=== PATIENT | male | born 1960 | race Caucasian/White ===

== ENCOUNTER 2017-08-02 20:15 | Emergency (ER) | payer OTHER, MEDICAID, SELFPAY ==
[2017-08-02 20:19] VITALS: BP 161/94; PULSE 130; RESP 18; TEMP 36.9; O2SAT 95; BMI 27.3
--- NOTE | 2017-08-03 00:52 | DI.RAD.S_ITS ---
PROCEDURE: XR CHEST 2V INDICATIONS: cough TECHNIQUE: 2 views of the chest were acquired. COMPARISON: [facility], , CHEST 1 VIEW, 07/26/2016, 17:11. FINDINGS: Surgical changes and devices: None. Lungs and pleura: No pleural effusions or pneumothorax. Lungs are clear. Mediastinum: Mediastinal contours are normal. Heart size is normal. Bones and chest wall: No suspicious bony abnormalities. Soft tissues appear unremarkable. IMPRESSION: No acute cardiopulmonary abnormality. Source of cough not seen. Dictated by: Raghavendra Garcia M.D. on 08/03/2017 at 7:58 Approved by: Raghavendra Garcia M.D. on 08/03/2017 at 7:59
[2017-08-03 01:09] VITALS: BP 157/92; PULSE 118; RESP 16; O2SAT 94
[2017-08-03] MEDS: GABAPENTIN 100 MG CAPSULE 400 MG PO (01:28)
--- NOTE | 2017-08-03 01:28 | ED.ALCOHOL ---
HPI - Alcohol General Chief Complaint: Toxicology Problem Stated Complaint: ALCSHEA WITHDRAWLS Time Seen by Provider: 08/03/17 00:49 History of Present Illness HPI narrative: HPI 57-year-old male with a history of intermittent recurrent EtOH abuse presents requesting assistance with sobriety after drinking heavily over the last 3 weeks. Patient reports that he was sober from one year prior to his last relapse. Patient reported drinking again after a trip to [place] and returning and finding himself bored. Patient drink 1/5 of hard alcohol day. Patient reports he is had multiple prior episodes of withdrawal that he is tolerated acceptably, however one was marked by seizures. Patient last drink one hour prior to arrival and approximate 6 hours prior to assessment. Patient denies chest pain, fevers, chills, but notes a cough for the last 3 weeks. ROS with no recent constitutional symptoms. Exam Gen: Pleasant, nontoxic-appearing, resting comfortably. HEENT: NC, AT, PEERL, EOMI. Resp: labor respirations with a normal work of breathing, lungs clear to auscultation bilaterally. Card: Extremities warm and well perfused. GI: Non-distended. : Deferred MSK: No visible deformities, strength and tone without visually appreciable deficit. Neuro: AO x 3, no facial asymmetry, vision and hearing WNL. Extremities without tremor. Heme/Lymph: Deferred Skin: Normal color with no visible lesions (other than noted above). Psych: Mood and affect appropriate. CXR: no acute cardiopulmonary disease process. Radiologist read pending. MDM Previous chart, nursing note, and vitals reviewed. A: 57-year-old male with history of EtOH abuse presents 6 hours after his last drink requesting assistance with alcohol withdraw; ROS notable for cough of 3 weeks duration. DDx & Evaluation: patient well-appearing, mild tachycardia, no chest pain, shortness breath, or further findings on history or exam to warrant investigation with respect to ACS, PE, pericarditis, myocarditis, or anemia. Chest x-ray without evidence of pneumonia. Patient given 400 mg gabapentin emergency department, discharge with RX for gabapentin and resources for assistance with alcohol cessation. Patient to follow up with his [employer] in the morning. Impression: early alcohol withdrawal. (please reference below for remainder of encounter information) Related Data Previous Rx's Medication Instructions Recorded chlordiazepoxide HCl 25 mg PO BIDP PRN #10 cap 08/01/16 gabapentin See Label Instructions .ROUTE 08/03/17 .COMPLEX #20 cap Allergies Allergy/AdvReac Type Severity Reaction Status Date / Time No Known Allergies Allergy Uncoded 06/23/17 11:58 PFSH Social History Smoking Status: Former smoker Exam Initial Vital Signs Initial Vital Signs: Vital Signs Temperature 98.5 F 08/02/17 20:19 Pulse Rate 130 H 08/02/17 20:19 Respiratory Rate 18 08/02/17 20:19 Blood Pressure 161/94 H 08/02/17 20:19 Pulse Oximetry 95 08/02/17 20:19 Course Orders Ordered: ED Orders 08/03/17 00:52 XR chest 2V Stat Gabapentin (Neurontin) 400 mg PO NOW YOLA Vital Signs - 8 hr 08/02/17 20:19 08/03/17 01:09 Temperature 98.5 F Pulse Rate 130 H 118 H Respiratory Rate 18 16 Blood Pressure 161/94 H Blood Pressure [Left Arm] 157/92 H Pulse Oximetry 95 94 Discharge Plan Departure Patient Disposition: Home, Self-Care Clinical Impression: Alcohol withdrawal Activity Restrictions/Additional Instructions: You were in seen in the [facility] Emergency Department for assistance with alcohol withdraw. Please read and follow all of the instructions below. 1. Please fill your gabapentin prescription and take as prescribed. 2. Please follow up with your primary care physician on 08/04/17. 3. If you would like to explore further options for assistance with detox please contact the following: [facility] Address: [place] [address] 4. If you have any new symptoms or if you are at all concerned about your health please return immediately to the emergency department. If you do not have a primary care physician, please contact [facility], [facility] at [phone], [facility] medicine at [phone], or [facility] at [phone] to arrange follow up care. If you have health insurance, please also contact your insurer for a list of accepting providers under your policy, you may contact these providers for further health care. Your care today was limited to identifying and treating emergent medical problems only. Many people have subtle differences in their test results that require follow up with their outpatient physician(s) to correctly determine if this represents a normal variation or concerning abnormality with respect to your specific health. The care given to you today was limited to identifying and treating emergent medical problems - you need to request a copy of all of your medical records from today's visit and follow up with your outpatient physician(s) to review both today's visit and your overall health. Alcohol Withdrawal Alcohol withdrawal is a condition that happens when a person who often drinks large amounts of alcohol suddenly stops drinking alcohol. People with alcohol withdrawal often have a headache, a stomach ache, and trouble sleeping. But sometimes, the symptoms are much more serious and even life threatening. Mild to moderate withdrawal can be treated at home. You are being treated for alcohol withdrawal * Call your primary care physician tomorrow to schedule a follow up appointment in 3-4 days. * Do not drink any further alcohol. * Call [employer] to obtain a sponsor and to start attending meetings. * Take gabapentin as prescribed to help reduce withdrawal symptoms (400 mg three times a day for days 1 through 4, then 400 mg two times a day for days 5-8). * Return immediately to the emergency room if you have hallucinations, fevers, sweating, a racing heart, confusion, increasing tremors, anxiety, chest pain, seizures or are otherwise concerned about your health. * Please read the below information regarding alcohol withdrawal and regarding Gabapentin. Symptoms of Alcohol Withdrawal * Mild symptoms include: trouble sleeping, trembling, feeling anxious, having an upset stomach and not wanting to eat, headache, sweating, feeling like your heart is beating fast, beating hard, or seems to skip a beat (these heartbeat changes are called palpitations). These symptoms often start within 6 hours after a person stops drinking. They might go away within 1 or 2 days. * Some people also get more serious symptoms, including:, Seizures (these can make a person pass out, or move or behave strangely. With alcohol withdrawal, seizures usually happen within 12 to 48 hours after the person stops drinking) and hallucinations. * Delirium tremens or DT, this is the most serious form of alcohol withdrawal. Symptoms include: hallucinations, feeling confused about where you are or who you are, feeling very upset and anxious, uncontrolled shaking, a fast heartbeat, high blood pressure, fever, and sweating. These symptoms start 2 to 4 days after a person stops drinking and can last up to 5 days. Gabapentin - How To Use * Read the Medication Guide provided by your pharmacist before you start taking gabapentin and each time you get a refill. If you have any questions, ask your doctor or pharmacist. * Swallow this medication whole. Do not crush or chew sustained-release tablets. Doing so can release all of the drug at once, increasing the risk of side effects. Also, do not split sustained-release tablets unless they have a score line and your doctor or pharmacist tells you to do so. Swallow the whole or split tablet without crushing or chewing. * Antacids containing aluminum or magnesium may interfere with the absorption of this medication. Therefore, if you are also taking an antacid, it is best to take gabapentin at least 2 hours after taking the antacid. Gabapentin Side Effects * Drowsiness, loss of coordination, and dizziness may occur. If any of these effects persist or worsen, tell your doctor or pharmacist promptly. * Tell your doctor right away if you have any serious side effects, including: swelling of the hands/ankles/feet. * A small number of people who take anticonvulsants for any condition (such as seizures, bipolar disorder, pain) may experience depression, suicidal thoughts/attempts, or other mental/mood problems. Tell your doctor right away if you or your family/caregiver notice any unusual/sudden changes in your mood, thoughts, or behavior including signs of depression, suicidal thoughts/attempts, thoughts about harming yourself. * Get medical help right away if you have any serious side effects, including: unusual fever, swollen glands, yellowing skin/eyes, unusual tiredness, dark urine, change in the amount of urine, chest pain. * A very serious allergic reaction to this drug is rare. However, get medical help right away if you notice any symptoms of a serious allergic reaction, including: rash, itching/swelling (especially of the face/tongue/throat), severe dizziness, trouble breathing. * This is not a complete list of possible side effects. If you notice other effects not listed above, contact your doctor or pharmacist. Gabapentin Precautions * Before taking gabapentin, tell your doctor or pharmacist if you are allergic to it; or to gabapentin enacarbil; or if you have any other allergies. This product may contain inactive ingredients, which can cause allergic reactions or other problems. Talk to your pharmacist for more details. * Before using this medication, tell your doctor or pharmacist your medical history, especially of: kidney disease, mental/mood problems (such as depression, thoughts of suicide), use/abuse of drugs/alcohol. * This drug may make you dizzy or drowsy. Do not drive, use machinery, or do any activity that requires alertness until you are sure you can perform such activities safely. Limit alcoholic beverages. * Before having surgery, tell your doctor or dentist about all the products you use (including prescription drugs, nonprescription drugs, and herbal products). * Older adults may be more sensitive to the side effects of this drug, especially swelling of the hands/ankles/feet, dizziness, or loss of coordination. Dizziness and loss of coordination can increase the risk of falling. Gabapentin Drug Interactions * Tell your doctor or pharmacist if you are taking other products that cause drowsiness including alcohol, antihistamines (such as cetirizine, diphenhydramine), drugs for sleep or anxiety (such as alprazolam, diazepam, zolpidem), muscle relaxants, and narcotic pain relievers (such as codeine, morphine). * Check the labels on all your medicines (such as allergy or [id number] products) because they may contain ingredients that cause drowsiness. Ask your pharmacist about using those products safely. * Do not use this medication with other medications that contain gabapentin (including gabapentin enacarbil). * This medication may interfere with certain laboratory tests for urine protein. Make sure laboratory personnel and all your doctors know you use this drug. Prescriptions: New gabapentin 400 mg capsule See Label Instructions .ROUTE .COMPLEX Qty: 20 RF: 0 No Action chlordiazepoxide HCl 25 MG capsule 25 mg PO BIDP PRNQty: 10 RF: 0
[2017-08-03 02:47] VITALS: BP 152/86; PULSE 106; RESP 20; TEMP 37; O2SAT 94
== END 2017-08-03 02:49 | disposition home or self-care (01) ==
PROVIDERS: Emergency Provider Emergency Medicine; Family Provider Nurse Practitioner Family; PCP Nurse Practitioner Family
DX: F10.239 Alcohol dependence with withdrawal, unspecified (principal)
CPT/HCPCS: 71046; 99282; 99283

== ENCOUNTER → 2017-12-02 08:33 | Outpatient (CLI) | payer OTHER, MEDICAID, SELFPAY | PROVIDERS: PCP Nurse Practitioner Family; Visit Provider Nurse Practitioner Family | DX: Z00.00 Encounter for general adult medical examination without abnormal findings (principal); I10 Essential (primary) hypertension ==

== ENCOUNTER 2019-06-10 16:37 | Emergency (ER) | payer SELFPAY ==
[2019-06-10 16:40] VITALS: BP 156/87; PULSE 82; RESP 20; TEMP 36.9; O2SAT 100; BMI 28.8
[2019-06-10 16:56] LABS: Add Manual Diff / Slide Review NO; Basophils Absolute Auto 0 /uL (0-100); Basophils Percent Auto 0.7 % (0-2); Eosinophils Absolute Auto 0 /uL (0-450); Eosinophils Percent Auto 0.8 % (2-4); Hematocrit 36.4 % (41-53); Hemoglobin 12.5 g/dL (13.5-17.5); Lymphocytes Absolute Auto 900 /uL (1100-4500); Lymphocytes Percent Auto 14.5 % (25-40); Mean Corpuscular HGB Conc 34.4 % (30-36); Mean Corpuscular Hemoglobin 31.2 PG (26-34); Mean Corpuscular Volume 90.8 fL (80-100); Monocytes Absolute Auto 700 /uL (0-900); Neutrophils Absolute Auto 4500 /uL (1500-7000); Red Blood Cell Count 4.01 X10^6/uL (4.5-5.9); Red Cell Distribution Width 13.9 % (11.6-14.8); White Blood Cell Count 6.1 X10^3/uL (4.5-11.0)
[2019-06-10] MEDS: SODIUM CHLORIDE 0.9% 1,000 ML 1000 ML IV (17:05)
[2019-06-10 17:09] LABS: Platelet Count 53 X10^3/uL (150-400)
[2019-06-10 17:16] LABS: Alanine Aminotransferase 78 IU/L (<50); Albumin 4.5 g/dL (3.5-5.0); Albumin Globulin Ratio 1.3 (1.0-2.8); Alkaline Phosphatase 56 U/L (38-126); Aspartate Aminotransferase 130 IU/L (17-59); BUN Creatinine Ratio 15.6 (6-22); Bilirubin Total 1.6 mg/dL (0.2-1.3); Bilirubin Unconjugated 1.3 mg/dL (0.0-1.1); Blood Urea Nitrogen 12 mg/dL (9-20); Calcium 9.4 mg/dL (8.4-10.2); Carbon Dioxide 29 mmol/L (22-32); Chloride 97 mmol/L (98-107); Estimated Glomerular Filt Rate > 60.0 mL/min (>60); Ethanol (ETOH) < 10 mg/dL; Globulin 3.4 g/dL (1.7-4.1); Glucose 105 mg/dL (70-100); Lipase 219 U/L (23-300); Magnesium 1.8 mg/dL (1.6-2.3); Sodium 136 mmol/L (137-145); Total Protein 7.9 g/dL (6.3-8.2)
[2019-06-10 17:17] LABS: HEMOLYSIS 73 (0-50)
[2019-06-10 17:18] LABS: Potassium 3.9 mmol/L (3.4-5.1)
--- NOTE | 2019-06-10 17:35 | ED.ALCOHOL ---
HPI - Alcohol <Rahul HajiMO Lea - Last Filed: 06/10/19 22:27> General Chief Complaint: Toxicology Problem Stated Complaint: ETOH withdrawls Time Seen by Provider: 06/10/19 16:50 Source: patient Mode of arrival: Ambulatory Limitations: no limitations History of Present Illness HPI narrative: This is a 59 year male, former smoker, who presents to ED with chief complain of alcohol withdrawal symptoms with incredibly feeling anxious and he is concerned and afraid that he may go through seizure. Patient reports last drink was 4 days ago and he was sober up until 2 weeks ago and went back to heavy drinking. Patient wants to quit drinking once again for his health and states it's going to kill me. Patient's choice of occult drinks are beer and ROM. Patient probably had half of 1/5 bottle for prior to 4 days ago. Patient was at large gathering with his friends and thought he will be able to handle on alcoholic drink and started with 1 drink which became more in amount and was unable to stop drinking. Patient reports yesterday he felt worst of his life. He was feeling anxious with the tremble was, feeling scared and paranoid. Patient was brought in by his friend and he is considering inpatient treatment at this time which he found to be helpful in the past. Patient denies headache, nausea, hallucinations at this time. Patient denies fever, recent illness, or coughing or chest pain. Related Data Previous Rx's Medication Instructions Recorded chlordiazepoxide HCl 25 mg PO BIDP PRN #10 cap 08/01/16 gabapentin See Rx Instructions .ROUTE 08/03/17 .COMPLEX #20 cap Allergies Allergy/AdvReac Type Severity Reaction Status Date / Time No Known Allergies Allergy Verified 06/11/19 15:05 Review of Systems <Rahul Benitez APPLICATIONS SUPPORT ENGINEER - Last Filed: 06/10/19 22:27> Review of Systems Narrative: General: Denies fever, chills, fatigue, malaise, sweats. HEENT: Denies sinus pain, ear pain, sore throat, difficulty swallowing, dizziness. Respiratory: Denies dyspnea, cough, wheezing, hemoptysis, sputum. Cardiovascular: Denies chest pain, palpitations, orthopnea, edema. Gastrointestinal: Denied (+) resolved nausea, vomiting, abdominal pain, diarrhea, constipation, melena. : Denies dysuria, frequency, incontinence, hematuria, urinary retention. Musculoskeletal: Denies weakness, joint pain or bony pain. Skin: Denies rash, skin lesions, or other. Neurologic: Denies weakness, headache, numbness, change in speech, confusion, seizures, incoordination. Psychiatric: See HPI 12-point review of systems is negative except for those stated above. Patient History <Rahul ISIAH BenitezP - Last Filed: 06/10/19 22:27> Social History Smoking Status: Former smoker Smoking Status: Former smoker alcohol intake frequency: 3 or more drinks per day Substance Use Type: marijuana Exam <[facility] ISIAH BenitezP - Last Filed: 06/10/19 22:27> Narrative Exam Narrative: General appearance: well developed, well nourished, mildly restless and appears to be mildly anxious. Head: normocephalic, atraumatic, no scalp lesions, non-tender. ENT: Hearing grossly intact. Nose without bleeding, purulent discharge, septal hematoma or deviation. Turbinate without erythema or swelling. Mucous membrane moist, no mucosal lesion. Throat without erythema, tonsillar hypertrophy or exudate. Uvula in midline, airway patent. Neck/Thyroid: neck supple, full range of motion, no visible masses or meningeal signs. No JVD, non-tender without lymphadenopathy. Skin: no suspicious rashes, lesions over visible areas. Warm and dry and appropriate color for ethnicity. Heart: no clubbing, no cyanosis, no edema. S1 and S2 normal. RRR w/o murmurs, clicks, or bruits. Lungs: Breathing even and unlabored. No stridor. No accessory muscles used. Able to speak in full sentences. Chest: normal shape and expansion. Abdomen: non-obese, non-distended. Neurologic: alert and oriented. Cognitive exam, WOOD FILLER and PNS grossly intact on informal exam. Psych: good eye contact, mildly anxious and restless. Cooperative during exam. Initial Vital Signs Initial Vital Signs: Vital Signs Temperature 98.4 F 06/10/19 16:40 Pulse Rate 82 06/10/19 16:40 Respiratory Rate 20 06/10/19 16:40 Blood Pressure 156/87 H 06/10/19 16:40 Pulse Oximetry 100 06/10/19 16:40 <Willie Gonzalez MD - Last Filed: 06/11/19 19:21> Initial Vital Signs Initial Vital Signs: Vital Signs Temperature 98.4 F 06/10/19 16:40 Pulse Rate 82 06/10/19 16:40 Respiratory Rate 20 06/10/19 16:40 Blood Pressure 156/87 H 06/10/19 16:40 Pulse Oximetry 100 06/10/19 16:40 Scores [facility] - Last Filed: 06/10/19 22:27> GCS [place] coma scale eye opening: Spontaneous Natasha coma scale verbal response: Orientated Natasha coma scale motor response: Obey commands Natasha coma scale total score: 15 Citation: CIWA 9 at 1730 (mild nausea 1, tremor 2, modrately anxious 4, agitation 2). CIWA 1 at 2020. Course <Rahul MO Benitez - Last Filed: 06/10/19 22:27> Orders Ordered: Discontinued Medications Sodium Chloride (Normal Saline 0.9%) 1,000 mls @ 1,000 mls/hr IV BOLUS ONE Stop: 06/10/19 17:49 Last Infusion: 06/10/19 18:20 Dose: 0 mls/hr Documented by: Admin: 06/10/19 17:05 Dose: 1,000 mls/hr Documented by: MAULIK Lorazepam (Ativan) 1 mg IV NOW ONE Stop: 06/10/19 17:37 Last Admin: 06/10/19 17:41 Dose: 1 mg Documented by: ROSALINE Ondansetron HCl (Zofran Odt Prepack) 1 bottle MISC SEEINSTR ONE Stop: 06/10/19 20:39 Last Admin: 06/10/19 20:51 Dose: 1 bottle Documented by: MITCH Phenobarbital (Phenobarbital) 260 mg IV NOW ONE Stop: 06/10/19 17:37 Last Admin: 06/10/19 17:50 Dose: 260 mg Documented by: ROSALINE Vital Signs Vital signs: Vital Signs - 8 hr 06/10/19 16:40 06/10/19 19:03 06/10/19 19:04 Temperature 98.4 F Pulse Rate 82 70 75 Respiratory Rate 20 16 Blood Pressure 156/87 H Blood Pressure [Left Arm] 137/83 137/83 Pulse Oximetry 100 91 06/10/19 20:00 06/10/19 21:04 Temperature Pulse Rate 78 81 Respiratory Rate 16 Blood Pressure 167/89 H Blood Pressure [Left Arm] 147/83 H Pulse Oximetry 98 98 <Willie Gonzalez MD - Last Filed: 06/11/19 19:21> Orders Ordered: Discontinued Medications Sodium Chloride (Normal Saline 0.9%) 1,000 mls @ 1,000 mls/hr IV BOLUS ONE Stop: 06/10/19 17:49 Last Infusion: 06/10/19 18:20 Dose: 0 mls/hr Documented by: Admin: 06/10/19 17:05 Dose: 1,000 mls/hr Documented by: MAULIK Lorazepam (Ativan) 1 mg IV NOW ONE Stop: 06/10/19 17:37 Last Admin: 06/10/19 17:41 Dose: 1 mg Documented by: ROSALINE Ondansetron HCl (Zofran Odt Prepack) 1 bottle MISC SEEINSTR ONE Stop: 06/10/19 20:39 Last Admin: 06/10/19 20:51 Dose: 1 bottle Documented by: MITCH Phenobarbital (Phenobarbital) 260 mg IV NOW ONE Stop: 06/10/19 17:37 Last Admin: 06/10/19 17:50 Dose: 260 mg Documented by: ROSALINE Vital Signs Vital signs: Vital Signs - 8 hr 06/10/19 16:40 06/10/19 19:03 06/10/19 19:04 Temperature 98.4 F Pulse Rate 82 70 75 Respiratory Rate 20 16 Blood Pressure 156/87 H Blood Pressure [Left Arm] 137/83 137/83 Pulse Oximetry 100 91 06/10/19 20:00 06/10/19 21:04 Temperature Pulse Rate 78 81 Respiratory Rate 16 Blood Pressure 167/89 H Blood Pressure [Left Arm] 147/83 H Pulse Oximetry 98 98 MDM - Alcohol <MO Almaguer - Last Filed: 06/10/19 22:27> Lab Data Result diagrams: 06/10/19 16:45 06/10/19 16:45 Labs: Lab Results 06/10/19 06/10/19 06/10/19 Range/Units 16:45 16:45 17:58 WBC 6.1 (4.5-11.0) X10^3/uL RBC 4.01 L (4.5-5.9) X10^6/uL Hgb 12.5 L (13.5-17.5) g/dL Hct 36.4 L (41-53) % MCV 90.8 (80-100) fL MCH 31.2 (26-34) PG MCHC 34.4 (30-36) % RDW 13.9 (11.6-14.8) % Plt Count 53 L (150-400) X10^3/uL Neut % (Auto) 73.0 (50-75) % Lymph % (Auto) 14.5 L (25-40) % [place] % (Auto) 11.0 (3-14) % Eos % (Auto) 0.8 L (2-4) % Baso % (Auto) 0.7 (0-2) % Neut # (Auto) 4500 (9217-6934) /uL Lymph # (Auto) 900 L (6441-7241) /uL [place] # (Auto) 700 (0-900) /uL Eos # (Auto) 0 (0-450) /uL Baso # (Auto) 0 (0-100) /uL Sodium 136 L (137-145) mmol/L Potassium 3.9 (3.4-5.1) mmol/L Chloride 97 L (98-107) mmol/L Carbon Dioxide 29 (22-32) mmol/L BUN 12 (9-20) mg/dL Creatinine 0.77 (0.66-1.25) mg/dL Estimated GFR > 60.0 (>60) mL/min BUN/Creatinine Ratio 15.6 (6-22) Glucose 105 H (70-100) mg/dL Calcium 9.4 (8.4-10.2) mg/dL Magnesium 1.8 (1.6-2.3) mg/dL Total Bilirubin 1.6 H (0.2-1.3) mg/dL Conjugated Bilirubin 0.0 (0.0-0.3) md/dL Unconjugated Bilirubin 1.3 H (0.0-1.1) mg/dL AST 130 H (17-59) IU/L ALT 78 H (<50) IU/L Alkaline Phosphatase 56 (38-126) U/L Total Protein 7.9 (6.3-8.2) g/dL Albumin 4.5 (3.5-5.0) g/dL Globulin 3.4 (1.7-4.1) g/dL Albumin/Globulin Ratio 1.3 (1.0-2.8) Lipase 219 (23-300) U/L U Opiates 300ng/mL cut Negative (Negative) Ur Oxycodone Screen Negative (Negative) Urine Methadone Screen Negative (Negative) Ur Barbiturates Screen Negative (Negative) U Tricyclic Antidepress Negative (Negative) Ur Phencyclidine Scrn Negative (Negative) Ur Amphetamines Screen Negative (Negative) U Methamphetamines Scrn Negative (Negative) Ur MDMA Scrn (Ecstasy) Negative (Negative) U Benzodiazepines Scrn Negative (Negative) Urine Cocaine Screen Negative (Negative) U Marijuana (THC) Screen Negative (Negative) Ethyl Alcohol < 10 ( - 10) mg/dL Urine Dip Bedside Urine Glucose Negative Bedside Urine Bilirubin - Negative Bedside Urine Ketone - Negative Urine Specific [place] 1.010 Bedside Urine Occult Blood - Negative Bedside Urine pH 8.0 Bedside Urine Protein - Negative Bedside Urine Urobilinogen - Negative Bedside Urine Nitrite - Negative Bedside Urine Leukocytes - Negative Esterase MDM Narrative Medical decision making narrative: This is a 59-year-old male who presents to ED with alcohol matson or symptoms. Patient recently started drinking again 2 weeks ago after he was sober for 2 years. Patient reports last drink was 4 days ago. Patient states yesterday he had worst symptoms and he had taken his own Valium at home to cope with his symptoms. Patient's initial CIWA score was 9 with some anxiety, tremors, and nausea. Patient was provided with IV fluid, IV Phenobarbital 260 mg and Ativan 1 mg IV for the symptoms. Patient states he had questionable mild seizure symptoms from alcohol withdrawal in the past and his concerned. Patient has mildly decreased H&H of 12.5 and 36.4 and platelets of 53 and his baseline platelet counts are from 41-96. Patient had mildly decreased sodium and chloride level of 136 and 97. Patient has history of pancreatitis and today's AST was 130, ALT of 78, with total bilirubin of 1.6. Lipase were normal. Patient denies any abdominal discomfort at this time. Patient informed phenobarbital is likely prevent seizure activities for next a few days. Patient's last drink was 4 days and it is unlikely patient will have DT at this time. Additional prophylactic medication for alcohol withdrawal symptoms were not provided since patient already has a few tabs of Valium at home. Patient discharged to home with [place] and advised to hydrate well and avoid alcohol drinks. Return precautions were discussed with the patient and patient verbalized the understanding and in agreement with the treatment plan. <Willie Gonzalez MD - Last Filed: 06/11/19 19:21> Lab Data Labs: Lab Results 06/10/19 06/10/19 06/10/19 Range/Units 16:45 16:45 17:58 WBC 6.1 (4.5-11.0) X10^3/uL RBC 4.01 L (4.5-5.9) X10^6/uL Hgb 12.5 L (13.5-17.5) g/dL Hct 36.4 L (41-53) % MCV 90.8 (80-100) fL MCH 31.2 (26-34) PG MCHC 34.4 (30-36) % RDW 13.9 (11.6-14.8) % Plt Count 53 L (150-400) X10^3/uL Neut % (Auto) 73.0 (50-75) % Lymph % (Auto) 14.5 L (25-40) % [place] % (Auto) 11.0 (3-14) % Eos % (Auto) 0.8 L (2-4) % Baso % (Auto) 0.7 (0-2) % Neut # (Auto) 4500 (8126-5367) /uL Lymph # (Auto) 900 L (6775-1468) /uL [place] # (Auto) 700 (0-900) /uL Eos # (Auto) 0 (0-450) /uL Baso # (Auto) 0 (0-100) /uL Sodium 136 L (137-145) mmol/L Potassium 3.9 (3.4-5.1) mmol/L Chloride 97 L (98-107) mmol/L Carbon Dioxide 29 (22-32) mmol/L BUN 12 (9-20) mg/dL Creatinine 0.77 (0.66-1.25) mg/dL Estimated GFR > 60.0 (>60) mL/min BUN/Creatinine Ratio 15.6 (6-22) Glucose 105 H (70-100) mg/dL Calcium 9.4 (8.4-10.2) mg/dL Magnesium 1.8 (1.6-2.3) mg/dL Total Bilirubin 1.6 H (0.2-1.3) mg/dL Conjugated Bilirubin 0.0 (0.0-0.3) md/dL Unconjugated Bilirubin 1.3 H (0.0-1.1) mg/dL AST 130 H (17-59) IU/L ALT 78 H (<50) IU/L Alkaline Phosphatase 56 (38-126) U/L Total Protein 7.9 (6.3-8.2) g/dL Albumin 4.5 (3.5-5.0) g/dL Globulin 3.4 (1.7-4.1) g/dL Albumin/Globulin Ratio 1.3 (1.0-2.8) Lipase 219 (23-300) U/L U Opiates 300ng/mL cut Negative (Negative) Ur Oxycodone Screen Negative (Negative) Urine Methadone Screen Negative (Negative) Ur Barbiturates Screen Negative (Negative) U Tricyclic Antidepress Negative (Negative) Ur Phencyclidine Scrn Negative (Negative) Ur Amphetamines Screen Negative (Negative) U Methamphetamines Scrn Negative (Negative) Ur MDMA Scrn (Ecstasy) Negative (Negative) U Benzodiazepines Scrn Negative (Negative) Urine Cocaine Screen Negative (Negative) U Marijuana (THC) Screen Negative (Negative) Ethyl Alcohol < 10 ( - 10) mg/dL Urine Dip Bedside Urine Glucose Negative Bedside Urine Bilirubin - Negative Bedside Urine Ketone - Negative Urine Specific [place] 1.010 Bedside Urine Occult Blood - Negative Bedside Urine pH 8.0 Bedside Urine Protein - Negative Bedside Urine Urobilinogen - Negative Bedside Urine Nitrite - Negative Bedside Urine Leukocytes - Negative Esterase Discharge Plan Departure Patient Disposition: Home Clinical Impression: Alcohol withdrawal Qualifiers: Complication of substance-induced condition: with unspecified complication Qualified Code(s): F10.239 - Alcohol dependence with withdrawal, unspecified Discharge Date/Time: 06/10/19 21:05 Instructions: DI for Alcohol Abuse, DI for Drug or Alcohol Withdrawal Activity Restrictions/Additional Instructions: You have been diagnosed with [alcohol abuse and alcohol withdrawal. You were hydrated with normal saline. You were medicated with phenobarbital 260 mg IV and Ativan 1 mg IV to help with her symptoms. Phenobarbital will last next 4 days to prevent seizures. Please hydrate well.]. What to do: *Take your medications as directed. You can take Zofran as needed for nausea. *Follow up with your primary care provider in 2-3 days, call for an appointment. Let them know you were seen in the ED and that we asked you to be seen in follow up. *Return to ED if you have any new, worsening, or concerning symptoms, such as [chest pain, breathing difficulty, unable to tolerate fluids, seizure, pain or any acute concerns]. Prescriptions: No Action chlordiazepoxide HCl 25 MG capsule 25 mg PO BIDP PRNQty: 10 RF: 0 gabapentin 400 mg capsule See Rx Instructions .ROUTE .COMPLEX Qty: 20 RF: 0 Referrals: [facility] [Outside]
[2019-06-10] MEDS: LORazepam 2 MG/ML INJ 1 MG IV (17:41)
[2019-06-10] MEDS: PHENobarbital 65 MG/ML VIAL 260 MG IV (17:50)
[2019-06-10 18:10] LABS: UR Morphine/Opiate cutoff 300 Negative (Negative); Ur Creatinine Normal (Normal); Ur Specific Gravity Normal (Normal); Urine Amphetamines Negative (Negative); Urine Cocaine Negative (Negative); Urine Methamphetamines Negative (Negative); Urine Tetrahydrocannabinol Negative (Negative); Urine pH Normal (Normal)
[2019-06-10 18:11] LABS: Urine Barbiturates Negative (Negative); Urine Benzodiazepines Negative (Negative); Urine MDMA Negative (Negative); Urine Methadone Negative (Negative); Urine Oxycodone Negative (Negative); Urine Phencyclidine Negative (Negative); Urine Tricyclic Antidepressant Negative (Negative)
[2019-06-10 19:03] VITALS: BP 137/83; PULSE 70; RESP 16; O2SAT 91
[2019-06-10 19:04] VITALS: BP 137/83; PULSE 75
[2019-06-10 20:00] VITALS: BP 147/83; PULSE 78; O2SAT 98
[2019-06-10] MEDS: ONDANSETRON 4 MG ODT PREPACK 1 BOTTLE MISC (20:51)
[2019-06-10 21:04] VITALS: BP 167/89; PULSE 81; RESP 16; O2SAT 98
== END 2019-06-10 21:05 | disposition home or self-care (01) ==
PROVIDERS: Emergency Provider Nurse Practitioner Family; Family Provider Nurse Practitioner Family; PCP Nurse Practitioner Family
DX: F10.239 Alcohol dependence with withdrawal, unspecified (principal)
CPT/HCPCS: 36415; 80053; 80076; 80305; 80320; 81003; 83690; 83735; 85025; 96361; 96374; 96375; 99284; J2060; J2560

== ENCOUNTER 2019-06-11 14:41 | Emergency (ER) | payer SELFPAY ==
[2019-06-11 15:00] VITALS: BP 135/92; PULSE 86; RESP 20; TEMP 37.2; O2SAT 97; BMI 28.8
[2019-06-11 16:06] LABS: UR Morphine/Opiate cutoff 300 Negative (Negative); Ur Creatinine Normal (Normal); Ur Specific Gravity Normal (Normal); Urine Amphetamines Negative (Negative); Urine Cocaine Negative (Negative); Urine Methamphetamines Negative (Negative); Urine Tetrahydrocannabinol Negative (Negative); Urine pH Normal (Normal)
[2019-06-11 16:07] LABS: Urine Barbiturates Positive (Negative); Urine Benzodiazepines Positive (Negative); Urine MDMA Negative (Negative); Urine Methadone Negative (Negative); Urine Oxycodone Negative (Negative); Urine Phencyclidine Negative (Negative); Urine Tricyclic Antidepressant Negative (Negative)
[2019-06-11 16:28] LABS: Add Manual Diff / Slide Review NO; Basophils Absolute Auto 0 /uL (0-100); Basophils Percent Auto 0.5 % (0-2); Eosinophils Absolute Auto 100 /uL (0-450); Hematocrit 34.3 % (41-53); Hemoglobin 11.7 g/dL (13.5-17.5); Lymphocytes Absolute Auto 500 /uL (1100-4500); Lymphocytes Percent Auto 13.2 % (25-40); Mean Corpuscular HGB Conc 34.2 % (30-36); Mean Corpuscular Hemoglobin 31.5 PG (26-34); Mean Corpuscular Volume 92.2 fL (80-100); Monocytes Absolute Auto 400 /uL (0-900); Monocytes Percent Auto 8.7 % (3-14); Neutrophils Absolute Auto 3200 /uL (1500-7000); Neutrophils Percent Auto 75.6 % (50-75); Platelet Count 39 X10^3/uL (150-400); Red Blood Cell Count 3.72 X10^6/uL (4.5-5.9); White Blood Cell Count 4.2 X10^3/uL (4.5-11.0)
[2019-06-11 16:38] LABS: HEMOLYSIS < 15 (0-50)
[2019-06-11 16:39] LABS: Blood Urea Nitrogen 7 mg/dL (9-20); Calcium 9.1 mg/dL (8.4-10.2); Carbon Dioxide 26 mmol/L (22-32); Chloride 104 mmol/L (98-107); Estimated Glomerular Filt Rate > 60.0 mL/min (>60); Ethanol (ETOH) < 10 mg/dL; Glucose 103 mg/dL (70-100); Sodium 137 mmol/L (137-145)
--- NOTE | 2019-06-11 16:42 | ED.ALCOHOL ---
HPI - Alcohol General Chief Complaint: Toxicology Problem Stated Complaint: alcohol withdrawls Time Seen by Provider: 06/11/19 15:16 Source: patient Mode of arrival: Family Vehicle Limitations: no limitations History of Present Illness HPI narrative: HPI: The patient is a 59-year-old male who came into the emergency department yesterday for alcohol withdrawal. His real issue is acute anxiety. Yesterday he was given 8 tablets 25 mg of chlordiazepoxide after being given 260 mg of phenobarb in the emergency department and discharged. The patient states that on Wednesday he had 1 drink of vodka while on the had from [place]. He said that his last drink was 5 days prior to that. He states that he is withdrawing from alcohol. The patient states that he has been admitted to alcohol rehab programs in and at least 2.5 years ago. He states that he wants help to stop drinking. The patient states that he is going to and he has a professional alcohol counselor helping in advising him. The patient states he has multiple friends that are trying to help him to stop drinking. I asked the patient what do you want and what you expect from the emergency department. He states I do not want is feels so anxious and I want help with my anxiety so that I do not start drinking alcohol again. The patient denies being suicidal or having suicidal thoughts as well as homicidal thoughts. He denies that he is in trouble with the law. He states that he feels anxious and nervous all of the time. The patient states that he bought diazepam 10 mg tablets in [place] and takes 2 tablets per day to help with his anxiety. He states that he was in [place] 3 days ago. He states that he is not sleeping well at night. He knows that he is depressed. His appetite is better than what it has been and his weight has been stable. The patient denies a history of diabetes mellitus hypertension a stroke myocardial infarction or COPD. He lives alone with numerous friends living around him to watch him and assist him. He does not smoke cigarettes but does smoke marijuana. The patient is single. 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 He minimally makes money as a musician. He denies any fever chills sweats headache at this time loss of vision blurred vision diplopia, shortness of breath cough chest pain palpitations dizziness muscle aches joint aches muscle cramps and spasms nausea vomiting diarrhea or urinary symptoms. Related Data Previous Rx's Medication Instructions Recorded chlordiazepoxide HCl 25 mg PO BIDP PRN #10 cap 08/01/16 gabapentin See Rx Instructions .ROUTE 08/03/17 .COMPLEX #20 cap Allergies Allergy/AdvReac Type Severity Reaction Status Date / Time No Known Allergies Allergy Verified 06/11/19 15:05 Review of Systems Review of Systems Narrative: His review of systems were all negative except for those mentioned in the history of present illness. Patient History Surgical History H/O hernia repair (Acute) Social History Smoking Status: Former smoker Smoking Status: Former smoker alcohol intake frequency: 3 or more drinks per day Substance Use Type: marijuana Exam Narrative Exam Narrative: PHYSICAL EXAM: CONSTITUTIONAL: Awake, Alert, Oriented, Coherent, Cooperative in NAD. He does not appear ill or toxic. He is talking to family and friends on his telephone. HEAD: AT/NC EENT: PERRL, FROM of eyes, no discharge, no nystagmus No epistaxis or nasal drainage Oral mucosa is moist and pink, posterior pharynx is without erythema or exudate. NECK: Supple, no obvious JVD, Trachea is midline without stridor, no palpable LN or masses. SPINE: No gross deformity, no palpable tenderness of the cervical, thoracic, lumbar or sacral spine. No CVA tenderness. THORAX: No deformity, no retractions retractions, no chest wall tenderness chest wall tenderness. LUNGS: Clear with symmetrical breath sounds without respiratory distress HEART: Normal heart tones, regular rhythm and rate without murmur. ABDOMEN: Abdomen is soft and nontender no palpable liver spleen kidney or mass. No guarding or rebound. EXTREMITIES: No edema, cyanosis, deformity or tenderness. SKIN: No rash, bruising, petechiae or purpura. NEURO: Awake, alert, oriented, conversive, cranial nerves II-XII are symmetrical moves all 4 extremities and is ambulatory. He has no tremor. Initial Vital Signs Initial Vital Signs: Vital Signs Temperature 98.9 F 06/11/19 15:00 Pulse Rate 86 06/11/19 15:00 Respiratory Rate 20 06/11/19 15:00 Blood Pressure 135/92 H 06/11/19 15:00 Pulse Oximetry 97 06/11/19 15:00 Course Course Course Narrative: 16:43 patient's urine drug screen is positive for barbiturates and benzodiazepines. His electrolytes an alcohol are pending at this time. The patient is sleeping in the room. The nurse held off giving him the phenobarb because he was sound asleep. The patient has been taken chlordiazepoxide and Valium foot 10 mg at least twice a day that he has obtained in [place]. The patient's original EKG was 109 ventricular rate. The computer read it as atrial flutter. However it did not look like atrial flutter it at looked like sinus tachycardia. 1752: The patient's CPK is 499 suggestive of rhabdomyolysis, troponin is less than 0.012. His ETOH is less than 10. The patient will be placed on a week long tapering dose of chlordiazepoxide to help him with his anxiety and withdrawal from alcohol. Personally I believe that the patient is beyond trouble with his alcohol withdrawal and that his primary problem is that of acute anxiety. However I will prescribe a tapering dose of chlordiazepoxide for the next 8 days. After that the patient will need to be evaluated by his primary care physician and placed on another anti anxiety medications such as Zoloft. Orders Ordered: ED Orders 06/11/19 15:53 Urine Drug Screen, Rapid Stat 06/11/19 16:19 Basic Metabolic Panel Stat Complete Blood Count AUTO DIFF Stat Ethanol (ETOH) Stat Troponin & CK Cardiac Panel Stat 06/11/19 16:46 EKG-12 Lead Stat 06/11/19 16:54 XR chest 2V Stat 06/11/19 17:10 Arterial Blood Gas Stat Discontinued Medications Phenobarbital (Phenobarbital) 260 mg IV NOW ONE Stop: 06/11/19 15:52 Vital Signs Vital signs: Vital Signs - 8 hr 06/11/19 15:00 Temperature 98.9 F Pulse Rate 86 Respiratory Rate 20 Blood Pressure 135/92 H Pulse Oximetry 97 MDM - Alcohol Medical Records Attestation: I reviewed the patient's medical records. Lab Data Attestation: I reviewed the patient's lab results. Result diagrams: 06/11/19 16:19 06/11/19 16:19 Labs: Lab Results 03/06/11/19 06/11/19 Range/Units 15:53 16:19 16:19 WBC 4.2 L (4.5-11.0) X10^3/uL RBC 3.72 L (4.5-5.9) X10^6/uL Hgb 11.7 L (13.5-17.5) g/dL Hct 34.3 L (41-53) % MCV 92.2 (80-100) fL MCH 31.5 (26-34) PG MCHC 34.2 (30-36) % RDW 14.0 (11.6-14.8) % Plt Count 39 L (150-400) X10^3/uL Neut % (Auto) 75.6 H (50-75) % Lymph % (Auto) 13.2 L (25-40) % [place] % (Auto) 8.7 (3-14) % Eos % (Auto) 2.0 (2-4) % Baso % (Auto) 0.5 (0-2) % Neut # (Auto) 3200 (2666-1285) /uL Lymph # (Auto) 500 L (3368-2439) /uL [place] # (Auto) 400 (0-900) /uL Eos # (Auto) 100 (0-450) /uL Baso # (Auto) 0 (0-100) /uL RBC Morphology Normal morphology ABG pH (7.35-7.45) ABG pCO2 (35-45) mmHg ABG pO2 (80-100) mmHg ABG HCO3 (22-26) mmol/L ABG Total CO2 (21-31) mmol/L ABG O2 Saturation (95-100) % ABG Base Excess (-2-2) mmol/L FiO2 Sodium 137 (137-145) mmol/L Potassium 3.6 (3.4-5.1) mmol/L Chloride 104 (98-107) mmol/L Carbon Dioxide 26 (22-32) mmol/L BUN 7 L (9-20) mg/dL Creatinine 0.78 (0.66-1.25) mg/dL Estimated GFR > 60.0 (>60) mL/min BUN/Creatinine Ratio 9.0 (6-22) Glucose 103 H (70-100) mg/dL Calcium 9.1 (8.4-10.2) mg/dL Total Creatine Kinase (55-170) U/L CK-MB (CK-2) (<2.37) ng/mL CK-MB (CK-2) Rel Index (1.5-5.0) % Troponin I (0.01-0.034) ng/mL U Opiates 300ng/mL cut Negative (Negative) Ur Oxycodone Screen Negative (Negative) Urine Methadone Screen Negative (Negative) Ur Barbiturates Screen Positive H (Negative) U Tricyclic Antidepress Negative (Negative) Ur Phencyclidine Scrn Negative (Negative) Ur Amphetamines Screen Negative (Negative) U Methamphetamines Scrn Negative (Negative) Ur MDMA Scrn (Ecstasy) Negative (Negative) U Benzodiazepines Scrn Positive H (Negative) Urine Cocaine Screen Negative (Negative) U Marijuana (THC) Screen Negative (Negative) Ethyl Alcohol < 10 ( - 10) mg/dL 06/11/19 06/11/19 Range/Units 16:19 17:10 WBC (4.5-11.0) X10^3/uL RBC (4.5-5.9) X10^6/uL Hgb (13.5-17.5) g/dL Hct (41-53) % MCV (80-100) fL MCH (26-34) PG MCHC (30-36) % RDW (11.6-14.8) % Plt Count (150-400) X10^3/uL Neut % (Auto) (50-75) % Lymph % (Auto) (25-40) % [place] % (Auto) (3-14) % Eos % (Auto) (2-4) % Baso % (Auto) (0-2) % Neut # (Auto) (5638-7993) /uL Lymph # (Auto) (1004-9023) /uL [place] # (Auto) (0-900) /uL Eos # (Auto) (0-450) /uL Baso # (Auto) (0-100) /uL RBC Morphology ABG pH 7.47 H (7.35-7.45) ABG pCO2 35.0 (35-45) mmHg ABG pO2 74 L (80-100) mmHg ABG HCO3 25 (22-26) mmol/L ABG Total CO2 26 (21-31) mmol/L ABG O2 Saturation 96 (95-100) % ABG Base Excess 2.0 (-2-2) mmol/L FiO2 21 Sodium (137-145) mmol/L Potassium (3.4-5.1) mmol/L Chloride (98-107) mmol/L Carbon Dioxide (22-32) mmol/L BUN (9-20) mg/dL Creatinine (0.66-1.25) mg/dL Estimated GFR (>60) mL/min BUN/Creatinine Ratio (6-22) Glucose (70-100) mg/dL Calcium (8.4-10.2) mg/dL Total Creatine Kinase 499 H (55-170) U/L CK-MB (CK-2) 4.52 H (<2.37) ng/mL CK-MB (CK-2) Rel Index 0.9 L (1.5-5.0) % Troponin I < 0.012 (0.01-0.034) ng/mL U Opiates 300ng/mL cut (Negative) Ur Oxycodone Screen (Negative) Urine Methadone Screen (Negative) Ur Barbiturates Screen (Negative) U Tricyclic Antidepress (Negative) Ur Phencyclidine Scrn (Negative) Ur Amphetamines Screen (Negative) U Methamphetamines Scrn (Negative) Ur MDMA Scrn (Ecstasy) (Negative) U Benzodiazepines Scrn (Negative) Urine Cocaine Screen (Negative) U Marijuana (THC) Screen (Negative) Ethyl Alcohol ( - 10) mg/dL ABG Data ABG results: The patient's arterial blood gases on room air reveals a pH is 7.467 a pCO2 of 35.0 indicating that the patient is mildly hyperventilating with respiratory alkalosis. PO2 is 74 O2 saturation is 96% on room air. Attestation: I personally reviewed and interpreted this ABG as follows: ECG Data Attestation: I personally reviewed and interpreted this ECG as follows: Interpretation: The patient's EKG obtained on June 10 at 17:0 2:01 a.m. reveals a sinus bradycardia with an occasional premature ventricular contracture. QRS is normal duration at 84 milliseconds as well as the QTC. The patient has a borderline left axis deviation. The patient has T-wave inversions in the lead III. He has low voltage in the inferior leads. He also has low voltage in the precordial leads. There are no other T-wave abnormalities ST or T-wave changes to suggest ischemia or and injury pattern. Discharge Plan Departure Patient Disposition: Home Clinical Impression: Anxiety Alcohol withdrawal Qualifiers: Complication of substance-induced condition: with unspecified complication Qualified Code(s): F10.239 - Alcohol dependence with withdrawal, unspecified Alcohol dependence with withdrawal Qualifiers: Complication of substance-induced condition: with unspecified complication Qualified Code(s): F10.239 - Alcohol dependence with withdrawal, unspecified Instructions: DI for Alcohol Abuse, DI for Anxiety -- Adult Activity Restrictions/Additional Instructions: 1. Follow up with your alcohol counselor. Contact her tomorrow. 2. Stop taking the diazepam tablets that you obtained in [place]. 3. Take the Chloridiazopoxide Taper over the next week as prescribed. 4. Follow up with your primary care physician to be placed on a medication for chronic anxiety. 5. Chloridiazepoxide Taper: Day #1: 25 mg, 4 times per day Day#2: 20 mg, 4 times per day Day#3: 15 mg, 4 times per day Day #4: 10 mg, 4 times per day Day #5: 10 mg , 3 times per day Day # 6: 5 mg, 3 times per day Day #7: 5 mg, twice a day Day #8, 5 mg at night 6. Follow up with your Primary Care physician for re-evaluation and be placed on anothe anti-anxiety medication. Prescriptions: No Action chlordiazepoxide HCl 25 MG capsule 25 mg PO BIDP PRNQty: 10 RF: 0 gabapentin 400 mg capsule See Rx Instructions .ROUTE .COMPLEX Qty: 20 RF: 0 Referrals: Marcia Gomez ARNP [Primary Care Provider] -
[2019-06-11 16:45] LABS: Potassium 3.6 mmol/L (3.4-5.1)
[2019-06-11 16:53] LABS: RBC Morphology Normal Morphology
--- NOTE | 2019-06-11 16:54 | DI.RAD.S_ITS ---
PROCEDURE: XR CHEST 2V INDICATIONS: questionable transient hypoxia, alcoholic TECHNIQUE: 2 views of the chest were acquired. COMPARISON: [facility], , XR CHEST 2V, 08/03/2017, 0:36. [facility], , CHEST 1 VIEW, 07/26/2016, 17:11. [facility], CR, CHEST 1 VIEW, 07/26/2016, 8:03. [facility], , CHEST 1 VIEW, 11/01/2014, 7:52. FINDINGS: Surgical changes and devices: None. Lungs and pleura: Lungs are clear, yet mildly hyperexpanded. No pleural effusions or pneumothorax. Mediastinum: Mediastinal contours are normal. Heart size is normal. Bones and chest wall: No suspicious bony abnormalities. There presumed Soft tissues appear unremarkable. IMPRESSION: Mildly hyperexpanded lungs, without an acute abnormality seen by plain film. Dictated by: Efe Boggs M.D. on 06/11/2019 at 16:24 Approved by: Efe Boggs M.D. on 06/11/2019 at 16:25
[2019-06-11 17:19] LABS: Fractionated Inspired Oxygen 21; HCO3 ABG 25 mmol/L (22-26); Oxygen Saturation ABG 96 % (95-100); PO2 ABG 74 mmHg (80-100); TCO2 ABG 26 mmol/L (21-31); pH ABG 7.47 (7.35-7.45)
[2019-06-11 17:21] LABS: Creatine Kinase 499 U/L (55-170)
[2019-06-11 17:34] LABS: Troponin I < 0.012 ng/mL (0.01-0.034)
[2019-06-11 17:37] LABS: CKMB % Relative Index 0.9 % (1.5-5.0); Creatine Kinase MB 4.52 ng/mL (<2.37)
[2019-06-11 18:18] VITALS: BP 136/80; PULSE 69; RESP 19; O2SAT 99
== END 2019-06-11 18:41 | disposition home or self-care (01) ==
PROVIDERS: Emergency Provider Emergency Medicine; Family Provider Nurse Practitioner Family; PCP Nurse Practitioner Family
DX: F41.9 Anxiety disorder, unspecified (principal); F10.239 Alcohol dependence with withdrawal, unspecified; R00.1 Bradycardia, unspecified; R82.5 Elevated urine levels of drugs, medicaments and biological substances
CPT/HCPCS: 36415; 36600; 71046; 80048; 80305; 80320; 82550; 82553; 82805; 84484; 85025; 93005; 99284

== ENCOUNTER → 2020-06-19 09:33 | Outpatient (CLI) | payer OTHER, SELFPAY ==
[2020-06-19] MEDS: COVID-19 VACC #1, MRNA(MOD) 100 MCG/0.5 ML VIAL IM (09:45)
== END ==
PROVIDERS: Family Provider Nurse Practitioner Family; PCP Nurse Practitioner Family; Visit Provider Internal Medicine
DX: Z23 Encounter for immunization (principal)
CPT/HCPCS: 0011A; 91301

== ENCOUNTER → 2020-07-17 08:26 | Outpatient (CLI) | payer OTHER, SELFPAY ==
[2020-07-17] MEDS: COVID-19 VACC #2, MRNA(MOD) 100 MCG/0.5 ML VIAL IM (08:32)
== END ==
PROVIDERS: PCP Nurse Practitioner Family; Visit Provider Internal Medicine
DX: Z23 Encounter for immunization (principal)
CPT/HCPCS: 0012A; 91301

== ENCOUNTER → 2020-08-19 15:18 | Outpatient (CLI) | payer OTHER, SELFPAY ==
--- NOTE | 2020-08-19 15:20 | DI.RAD.S_ITS ---
PROCEDURE: XR FOOT LT MIN 3V INDICATIONS: left foot pain TECHNIQUE: 3 views of the foot were acquired. COMPARISON: None. FINDINGS: Bones: No fractures or dislocations. No suspicious bony lesions. Soft tissues: No tibiotalar joint effusion. Achilles tendon appears normal. IMPRESSION: No acute abnormality of the left foot. Dictated by: Darren Lindquist M.D. on 08/19/2020 at 16:23 Approved by: Darren Lindquist M.D. on 08/19/2020 at 16:25
== END ==
PROVIDERS: PCP Internal Medicine; Referring Provider Internal Medicine; Visit Provider Internal Medicine
DX: M79.672 Pain in left foot (principal)
CPT/HCPCS: 73630

== ENCOUNTER → 2020-09-19 08:19 | Outpatient (CLI) | payer OTHER, SELFPAY ==
[2020-09-19 09:50] LABS: Add Manual Diff / Slide Review NO; Basophils Absolute Auto 0 /uL (0-100); Basophils Percent Auto 1.1 % (0-2); Eosinophils Absolute Auto 100 /uL (0-450); Eosinophils Percent Auto 2.9 % (2-4); Hematocrit 41.4 % (41-53); Hemoglobin 14.1 g/dL (13.5-17.5); Lymphocytes Absolute Auto 2000 /uL (1100-4500); Lymphocytes Percent Auto 43.4 % (25-40); Mean Corpuscular HGB Conc 34.1 % (30-36); Mean Corpuscular Hemoglobin 31.5 PG (26-34); Mean Corpuscular Volume 92.5 fL (80-100); Monocytes Absolute Auto 600 /uL (0-900); Monocytes Percent Auto 12.3 % (3-14); Neutrophils Absolute Auto 1800 /uL (1500-7000); Neutrophils Percent Auto 40.3 % (50-75); Platelet Count 157 X10^3/uL (150-400); Red Blood Cell Count 4.48 X10^6/uL (4.5-5.9); Red Cell Distribution Width 13.7 % (11.6-14.8); White Blood Cell Count 4.5 X10^3/uL (4.5-11.0)
[2020-09-19 10:20] LABS: Alanine Aminotransferase 25 IU/L (<50); Albumin 4.4 g/dL (3.5-5.0); Albumin Globulin Ratio 1.4 (1.0-2.8); Alkaline Phosphatase 58 U/L (38-126); Aspartate Aminotransferase 39 IU/L (17-59); BUN Creatinine Ratio 22.8 (6-22); Bilirubin Total 0.8 mg/dL (0.2-1.3); Blood Urea Nitrogen 21 mg/dL (9-20); Calcium 9.8 mg/dL (8.4-10.2); Carbon Dioxide 24 mmol/L (22-32); Chloride 106 mmol/L (98-107); Cholesterol 232 mg/dL (140-199); Estimated Glomerular Filt Rate > 60.0 mL/min (>60); Globulin 3.1 g/dL (1.7-4.1); Glucose 93 mg/dL (70-100); HDL Cholesterol 66 mg/dL (40-60); HEMOLYSIS < 15 (0-50); LDL Cholesterol Calculated 151 mg/dL (<100); Potassium 3.9 mmol/L (3.4-5.1); Sodium 139 mmol/L (137-145); Total Protein 7.5 g/dL (6.3-8.2); Triglycerides 74 mg/dL (35-150)
[2020-09-19 10:52] LABS: Prostate Specific Antigen Scrn 1.56 ng/mL (0.1-4.0)
[2020-09-19 11:02] LABS: TSH w/ Reflex to FT4 1.09 uIU/mL (0.47-4.68)
== END ==
PROVIDERS: PCP Internal Medicine; Referring Provider Internal Medicine; Visit Provider Internal Medicine
DX: F10.20 Alcohol dependence, uncomplicated (principal); I48.0 Paroxysmal atrial fibrillation; Z13.1 Encounter for screening for diabetes mellitus; Z13.220 Encounter for screening for lipoid disorders; Z13.6 Encounter for screening for cardiovascular disorders; Z12.5 Encounter for screening for malignant neoplasm of prostate
CPT/HCPCS: 36415; 80053; 80061; 84443; 85025; G0103

== ENCOUNTER → 2021-01-03 09:02 | Outpatient (CLI) | payer OTHER, SELFPAY ==
[2021-01-03 10:48] LABS: COVID19 -Nasal RAPID Negative (Negative)
== END ==
PROVIDERS: PCP Internal Medicine; Visit Provider Surgery
DX: Z01.812 Encounter for preprocedural laboratory examination (principal); Z20.822 Contact with and (suspected) exposure to COVID-19
CPT/HCPCS: 87635; C9803

== ENCOUNTER 2021-01-06 07:24 | Day surgery (SDC) | payer OTHER, SELFPAY ==
[2021-01-06 07:44] VITALS: BP 139/87; PULSE 82; RESP 18; TEMP 36.7; O2SAT 98; BMI 28.3
--- NOTE | 2021-01-06 07:58 | PM.HP.1 ---
History of Present Illness History of Present Illness Date Patient Seen: 01/06/21 Time Patient Seen: 07:58 Chief complaint: SDC Narrative: The patient presents for colorectal sreening. They have never had any previous examination for such. No personal or family history of colon cancer. On further history denies any recent gastrointestinal symptoms. No nausea, vomiting, abdominal pain, loss of appetite, unexplained weight loss, change in bowel habits, diarrhea, constipation, melena, hematochezia, or bright red blood per rectum. Patient History Medical History Alcoholism Paroxysmal atrial fibrillation Surgical History H/O hernia repair Family & Social History Tobacco & Substance use: Smoking Status Former smoker alcohol intake frequency 3 or more drinks per day Substance Use Type marijuana Meds Home Medications and Allergies Home Medications Medication Instructions Recorded Confirmed Type gabapentin 300 mg capsule 300 mg PO BEDTIME #30 cap 12/09/20 01/06/21 Rx hydrocodone 5 mg-acetaminophen 325 1 tab PO DAILY 01/06/21 01/06/21 History mg tablet Allergies Allergy/AdvReac Type Severity Reaction Status Date / Time No Known Allergies Allergy Verified 10/29/20 09:24 Exam Narrative Exam Narrative: Constitutional-he is oriented to person, place and time. No apparent distress Cardiovascular- regular rate, no peripheral edema Pulmonary-unlabored respiratory effort, no audible wheezing Abdominal-soft, non-tender, non-distended Musculoskeletal-no cyanosis or clubbing Neurological-nonfocal, normal strength throughout Skin-warm and dry Assessment & Plan Assessment and plan (1) Screening for colon cancer: Status: Acute Assessment & Plan narrative: The patient requires colorectal screening and colonoscopy is recommended. Technical details were discussed. Risks, benefits, alternatives explained. Risks including but not limited to myocardial infarction, aspiration, bleeding, pain, missed lesion, incomplete examination, need for further radiographic studies, colonic perforation, and need for major abdominal surgery were discussed. All questions were answered to their satisfaction, and they are in agreement with this plan. Time Spent With Patient Critical Care time: I spent a total of [] minutes of critical care time on this patient's care today; this time is exclusive of procedural time.
[2021-01-06] MEDS: LACTATED RINGERS 1,000 ML 200 ML IV (08:02)
[2021-01-06] MEDS: fentaNYL 250 MCG/5 ML INJ IV (08:12)
[2021-01-06] MEDS: MIDAZOLAM 5 MG/5 ML VIAL IV (08:15)
--- NOTE | 2021-01-06 08:29 | PM.OP.COLON ---
Operative Date/Time/Diagnoses Date of procedure: 01/06/21 Time of procedure: 08:29 Pre-op diagnosis: Screening colonoscopy Post-op diagnosis: same Procedure & Clinicians Study performed: Colonoscopy Same procedure as scheduled: Yes Indications: Screening Surgeon: Antoni Patton Procedure Notes Procedure in detail: Medications: Conscious sedation using 6 mg IV midazolam and 150 mcg IV of fentanyl The history and physical was performed/updated and the patient is ASA class is 2. The procedure was discussed in detail with the patient. Potential risks complications including infection, bleeding, missed diagnosis, perforation, need for surgery, and were explained. Their questions were answered and informed consent was obtained. Patient was brought to the procedure room and placed standard monitoring equipment. The patient's vital signs were monitored continuously throughout the entire procedure. Prior to starting time-out was performed. The patient was placed in the left lateral recumbent position. Procedural sedation was administered. Examination began with a thorough inspection of the perianal area there was no evidence of fissures, fistulae, external hemorrhoids or cutaneous malignancy. The colonoscopy scope was then placed into the anal canal and was advanced to the cecum, which was identified by the ileocecal valve, the appendiceal orifice and the confluence of the taenia. The scope was then slowly withdrawn examining colon thoroughly in all directions, irrigating it of any residual stool. FINDINGS 1. No masses or polyps 2. Normal healthy colon The patient tolerated the procedure well. They will be discharged once criteria are met. The prep was of good/excellent quality. The withdrawl time was 6 minutes. The sedation time was 18 minutes. Specimen(s): none sent Complications: none Impression: Normal colonoscopy Post-procedure Recommendations: Colonoscopy in 10 years Disposition: same day surgery
[2021-01-06 08:32] VITALS: BP 100/62; PULSE 84; RESP 16; TEMP 37.2; O2SAT 94
[2021-01-06 08:37] VITALS: BP 96/72; PULSE 81; RESP 14; O2SAT 95
[2021-01-06 08:42] VITALS: BP 106/70; PULSE 78; RESP 16; O2SAT 98
[2021-01-06 08:48] VITALS: BP 110/71; PULSE 82; RESP 12; TEMP 36.6; O2SAT 96
[2021-01-06 09:00] VITALS: BP 101/65; PULSE 77; RESP 16; TEMP 36.9; O2SAT 97
== END 2021-01-06 09:14 | disposition home or self-care (01) ==
PROVIDERS: PCP Internal Medicine; Referring Provider Surgery; Visit Provider Surgery
PROC: 0DJD8ZZ Inspection of Lower Intestinal Tract, Via Natural or Artificial Opening Endoscopic (ICD-10-PCS; CPT 45378; principal; 2021-01-06 08:30)
DX: Z12.11 Encounter for screening for malignant neoplasm of colon (principal); I48.0 Paroxysmal atrial fibrillation
CPT/HCPCS: 45378; 99152; J2250; J3010

== ENCOUNTER → 2022-07-13 16:28 | Outpatient (CLI) | payer OTHER, SELFPAY ==
[2022-07-13 17:07] LABS: HEMOLYSIS < 15 (0-50)
[2022-07-13 17:14] LABS: Alanine Aminotransferase 30 IU/L (<50); Albumin 4.4 g/dL (3.5-5.0); Albumin Globulin Ratio 1.4 (1.0-2.8); Alkaline Phosphatase 62 U/L (38-126); Aspartate Aminotransferase 31 IU/L (17-59); BUN Creatinine Ratio 22.1 (6-22); Bilirubin Total 0.3 mg/dL (0.2-1.3); Blood Urea Nitrogen 23 mg/dL (9-20); Calcium 9.5 mg/dL (8.4-10.2); Carbon Dioxide 26 mmol/L (22-32); Chloride 105 mmol/L (98-107); Estimated Glomerular Filt Rate > 60 mL/min (>60); Globulin 3.1 g/dL (1.7-4.1); Glucose 97 mg/dL (80-110); Potassium 4.1 mmol/L (3.4-5.1); Sodium 139 mmol/L (137-145); Total Protein 7.5 g/dL (6.3-8.2)
[2022-07-14 17:49] LABS: Prostate Specific Antigen Scrn 2.27 ng/mL (0.1-4.0)
== END ==
PROVIDERS: PCP Internal Medicine; Referring Provider Internal Medicine; Visit Provider Internal Medicine
DX: Z79.899 Other long term (current) drug therapy (principal); Z12.5 Encounter for screening for malignant neoplasm of prostate
CPT/HCPCS: 36415; 80053; G0103

== ENCOUNTER → 2024-05-17 12:10 | Outpatient (CLI) | payer BC, SELFPAY ==
--- NOTE | 2024-05-17 12:11 | DI.RAD.S_ITS ---
PROCEDURE: XR CHEST 2V INDICATIONS: 5 weeks cough TECHNIQUE: 2 views of the chest were acquired. COMPARISON: [facility], CR, XR CHEST 2V, 06/11/2019, 17:09. FINDINGS: Surgical changes and devices: None. Lungs and pleura: Lungs are clear. No pleural effusions or pneumothorax. Mediastinum: Mediastinal contours are normal. Heart size is normal. Bones and chest wall: No suspicious bony abnormalities. Soft tissues appear unremarkable. IMPRESSION: No acute cardiopulmonary abnormality is seen. Dictated by: Mustapha Castillo M.D. on 05/17/2024 at 13:05 Approved by: Mustapha Castillo M.D. on 05/17/2024 at 13:05
== END ==
LOC: RAD 12:11
PROVIDERS: PCP Internal Medicine; Referring Provider Student in an Organized Health Care Education/Training Program; Visit Provider Student in an Organized Health Care Education/Training Program
DX: R05.8 Other specified cough (principal)
CPT/HCPCS: 71046

== ENCOUNTER → 2024-05-22 07:09 | Outpatient (CLI) | payer BC, SELFPAY ==
[2024-05-22 08:01] LABS: Alanine Aminotransferase 23 IU/L (<50); Albumin 4.6 g/dL (3.5-5.0); Albumin Globulin Ratio 1.8 (1.0-2.8); Alkaline Phosphatase 68 U/L (38-126); Aspartate Aminotransferase 29 IU/L (17-59); BUN Creatinine Ratio 24.2 (6-22); Bilirubin Total 0.7 mg/dL (0.2-1.3); Blood Urea Nitrogen 24 mg/dL (9-20); Calcium 9.8 mg/dL (8.4-10.2); Carbon Dioxide 22 mmol/L (22-32); Chloride 105 mmol/L (98-107); Cholesterol 205 mg/dL (140-199); Estimated Glomerular Filt Rate > 60 mL/min (>60); Globulin 2.6 g/dL (1.7-4.1); Glucose 108 mg/dL (80-110); HDL Cholesterol 77 mg/dL (40-60); HEMOLYSIS < 15 (0-50); LDL Cholesterol Calculated 115 mg/dL (<100); Potassium 3.7 mmol/L (3.4-5.1); Sodium 137 mmol/L (137-145); Total Protein 7.2 g/dL (6.3-8.2); Triglycerides 63 mg/dL (35-150)
[2024-05-22 08:32] LABS: Prostate Specific Antigen Scrn 2.35 ng/mL (0.1-4.0)
== END ==
PROVIDERS: PCP Internal Medicine; Referring Provider Internal Medicine; Visit Provider Internal Medicine
DX: I48.0 Paroxysmal atrial fibrillation (principal); Z13.6 Encounter for screening for cardiovascular disorders; Z13.1 Encounter for screening for diabetes mellitus; Z13.220 Encounter for screening for lipoid disorders; Z12.5 Encounter for screening for malignant neoplasm of prostate
CPT/HCPCS: 36415; 80053; 80061; G0103